=== PATIENT | female | born 1965 | race Caucasian/White ===

== ENCOUNTER 2017-11-17 18:32 | Emergency (ER) | payer BC ==
[~2017-11-17] VITALS: Ht 162.6 cm; Wt 89.8 kg
[2017-11-17] MEDS ORDERED: BENICAR HCT 201 EACH (18:42)
[2017-11-17] MEDS ORDERED: ATORVASTATIN CA10 MG (18:42)
== END 2017-11-17 23:28 | disposition home or self-care (01) ==
LOC: ER 18:32
DX: R55 Syncope and collapse (principal); E86.0 Dehydration; K52.9 Noninfective gastroenteritis and colitis, unspecified